=== PATIENT | male | born 1995 | race Caucasian/White ===

== ENCOUNTER 2017-06-27 09:09 | Day surgery (SDC) | payer OTHER ==
[~2017-06-27] VITALS: Ht 177.8 cm; Wt 74.3 kg
[2017-06-27 09:30] VITALS: BP 13/77; PULSE 75; RESP 17; TEMP 98.1; O2SAT 9
[2017-06-27] MEDS ORDERED: METO25TA6 PO (09:58)
[2017-06-27 10:18] LABS: AUTOMATED NEUTROPHIL # 2.8 TH/MM3 (1.8-7.7); BASOPHIL # 0.1 TH/MM3 (0-0.2); BASOPHIL % 1.2 % (0.0-2.0); EOSINOPHIL # 0.2 TH/MM3 (0-0.4); EOSINOPHIL % 3.9 % (0.0-4.0); HEMATOCRIT 45.7 % (39.0-51.0); HEMO FLAGS DIFF FINAL; LYMPH % 28.2 % (9.0-44.0); LYMPHOCYTE # 1.5 TH/MM3 (1.0-4.8); MEAN CELL VOLUME 81.9 FL (80.0-100.0); MONO % 13.2 % (0.0-8.0); NEUT % 53.5 % (16.0-70.0); PLATELET COUNT 285 TH/MM3 (150-450); RED BLOOD COUNT 5.59 MIL/MM3 (4.50-5.90); WHITE BLOOD COUNT 5.2 TH/MM3 (4.0-11.0)
[2017-06-27 10:25] LABS: APTT (PATIENT) 28.5 SEC (24.3-30.1); PROTHROMBIN TIME - PATIENT 10.7 SEC (9.8-11.6)
[2017-06-27 10:52] LABS: BICARBONATE 24.9 MEQ/L (21.0-32.0); POTASSIUM 3.9 MEQ/L (3.5-5.1)
[2017-06-27] MEDS ORDERED: LORazepam 1 MG TAB SL SCH (11:00)
[2017-06-27] MEDS ORDERED: POVIDONE IODINE 5% (ANTISEPSIS KIT) 4 APPLICATIONS EACH NARE PRN (11:00)
[2017-06-27] MEDS ORDERED: LACTATED RINGER'S 1000 ML IV PRN (11:00)
[2017-06-27] MEDS ORDERED: SODIUM CHLORID 0.9% 500 ML INJ 500 ML IV SCH (11:00)
[2017-06-27] MEDS ORDERED: CHLORHEXIDINE GLUCONATE 2 % 1 PACK (2 CLOTHS) TOPICAL PRN (11:00)
[2017-06-27] MEDS ORDERED: INSULIN HUMAN REGULAR 1,000 UNITS/10 ML VIAL SQ PRN (11:00)
[2017-06-27] MEDS ORDERED: SODIUM CHLORID 0.9% 500 ML IV PRN (11:00)
[2017-06-27] MEDS ORDERED: METOPROLOL TARTRATE 25 MG TAB PO PRN (11:00)
[2017-06-27] MEDS ORDERED: HEPARIN-NS/PF INJ 1,000 ML ONE (12:17)
[2017-06-27] MEDS ORDERED: ISOPROTERENOL HCL 1 MG/5 ML AMP ONE (13:22)
[2017-06-27] MEDS ORDERED: HEPARIN SODIUM - IV 10,000 UNITS/10 ML VIAL ONE (13:22)
[2017-06-27] MEDS ORDERED: HEPARIN-D5W 25,000 U/250 ML 0 ML ONE (13:22)
[2017-06-27] MEDS ORDERED: MIDAZOLAM HCL 2 MG/2 ML VIAL ONE (13:33)
[2017-06-27] MEDS ORDERED: HEPARIN-NS/PF INJ 2,000 ML ONE (14:53)
[2017-06-27] MEDS ORDERED: PROTAMINE SULFATE 50 MG/5 ML VIAL ONE (15:23)
[2017-06-27] MEDS ORDERED: DO NOT ADM ANY ANTICOAGULANT DRUGS PRN (15:30)
--- NOTE | 2017-06-27 15:37 | CATHPROC ---
Hyper9 HIS Report Study Information Study Number Admission Scheduled Start Study Start [id number] Jun 27 2017 9:09AM 06/27/2017 Jun 27 2017 11:50AM [place] Service Electrophysiology Study Admit Source Facility Department Other [facility] - [facility] Physician and Clinical Staff Initial Jovani Urban Structural Steel Engineer Tata Galindo,SOCIAL HUMAN SERVICES ASSISTANTS TECH2 Additional Trent Garcia Other Anesthesia, SPIRAL WEAVER Recorder Alycia Lock,RN Recorder Selam Tee,BSRN Scrub Lynn Calix,RT(R) TECH2 Procedures Performed Procedure Location (Site) Vessel Name Ablation Procedure ICE CATHETER INSERT RA Atruim RF Ablation LV Ventricle Wire insertion Fem Vein (right) Femoral Vein Equipment Time Ocean Export Account Manager Description Size Mfg Part Number Used/Scraped 14:45 [employer] CARTRIDGE, CO2 COMMANDER [id number] *[id number] Used BIOSENSE SWANSON CATHETER, THERMOCOOL NON- [id number] 12:14 Used INC. LINETTE TC D-F *[id number] BIOSENSE SWANSON 12:15 SET, TUBING COOLFLOW * [id number] Used INC. 538-450S *[id number] 13:51 CORDIS/PACER SHEATH, FR10 KODI 11CM FR 10 [id number] Used [id number] 12:13 [employer] INDUSTRIES PACK, CCL CUSTOM * Used *[id number] 12:13 [employer] PACER KAY, LIMB * 2530 *[id number] Used 14:44 NYCOMED OMNIPAQUE, 300 MG, 150ML 150ML [id number] Used [id number] 12:13 GARCIA MEDICAL BLANKET,WARM AIR CCL * Used *[id number] 12:14 [employer]. ARSENIO MEDICAL CATHETER, JSN, QUAD FR 5 Used *[id number] 12:14 [employer] ARS[employer] MEDICAL CATHETER, JSN, QUAD FR 5 Used *[id number] 12:14 [employer] ARSEN[employer] MEDICAL CATHETER, JSN, QUAD FR 5 Used *[id number] 12:13 ST. ARSENIO MEDICAL ELECTRODE KIT, LINETTE X SURFACE * [id number] Used SHEATH, EPS, FR10 FAST CATH 12:14 [employer]. ARSENIO MEDICAL FR 10 TRIO [id number] Used TRIO 12:14 [employer] ARSEN[employer] MEDICAL SHEATH, EPS, FR4 FAST CATH FR 4 [id number] Used 12:14 [employer] MEDICAL SHEATH, EPS, FR6 FAST CATH FR 6 [id number] Used 12:14 [employer] A[employer] MEDICAL SHEATH, EPS, FR6 FAST CATH FR 6 [id number] Used 12:14 [employer] A[employer] MEDICAL SHEATH, EPS, FR7 FAST CATH FR 7 [id number] Used 12:14 [employer] A[employer] MEDICAL SHEATH, EPS, FR8 FAST CATH FR 8 [id number] Used 14:04 [facility] A[employer] MEDICAL SHEATH, EPS, FR8 FAST CATH FR 8 [id number] Used CATHETER, ACUNAV FR10 ICE [id number] 13:58 SHAYE FR 10 Used (SHAYE) *[id number] [facility] PAD, ELECTROSURGICAL 12:13 * [id number] *[id number] Used SURGICAL GROUNDING (BLUE) History: Current Medications Medication Dosage/Unit Route Frequency Last Date/Time Taken LOPRESSOR History: Allergies Allergy Reaction No Known Allergies History: Risk Factors Family History of Hypertension Dyslipidemia Previous NV Previous Heart Failure Premature CAD No No No No No Prior Valve Prior PCI Prior CABG Surgery No No No Cerebrovascular Peripheral Artery Chronic Lung On Dialysis Diabetes Disease Disease Disease No No No No No History: Symptoms/Diagnosis Selection Items Palpitations SOB Labs Hgb (g/dl) Hct (%) RBC (MIL/MM3) WBC (l/cumm) Platelets (thousands) 11.60-17.00 35.00-51.00 4.00-5.90 4.00-11.00 150.00-450.00 15.0 45 5.5 5.2 285 Glucose (mg/dl) BUN (mg/dl) Creatinine (mg/dl) BUN:Creatinine (1:x) 74.00-106.00 7.00-18.00 0.50-1.30 10.00-20.00 95 14 0.8 17.5 Na (meq/l) K (meq/l) Cl (meq/l) CO2 (mmol/L) Ca (mg/dl) 136.00-145.00 3.50-5.10 98.00-107.00 21.00-32.00 8.50-10.10 136 3.9 105 24.9 9.5 INR (PTT:PT) 0.90-1.10 1 Medication Medication Total Dose (Bolus/Oral) Medication Total Dosage/Unit 1% XYLOCAINE 40 mL HEPARIN 8000 units PROTAMINE 10 mg Medications (Bolus/Oral) Medication Time Given Dosage/Unit Administered By Reason 1% XYLOCAINE 06/27/2017 1:43:46 PM 20 mL Jovani Garcia For pain 20 mL 1% XYLOCAINE given in lab by Jovani Garcia in Left Groin via Subcutaneous. Ordered by Arnoldo Garcia. Reason: For pain. 1% XYLOCAINE 06/27/2017 1:51:45 PM 20 mL Jovani Garcia As per physicians ve rbal order 20 mL 1% XYLOCAINE given in lab by Jovani Garcia in Right Groin via Subcutaneous. Ordered by Yue Garcia. Reason: As per physicians verbal order. HEPARIN 06/27/2017 1:55:10 PM 4000 units Jovani Garcia As per physicians ve rbal order 4000 units HEPARIN given in lab by Jovani Garcia in Right Forearm via Peripheral IV. Ordered by Jovani Garcia. Reason: As per physicians verbal order. HEPARIN 06/27/2017 2:10:24 PM 2000 units Jovani Garcia As per physicians ve rbal order 2000 units HEPARIN given in lab by Jovani Garcia in Right Forearm via Peripheral IV. Ordered by Jovani Garcia. Reason: As per physicians verbal order. HEPARIN 06/27/2017 2:40:39 PM 2000 units Jovani Garcia As per physicians ve rbal order 2000 units HEPARIN given in lab by Jovani Garcia in Right Forearm via Peripheral IV. Ordered by Jovani Garcia. Reason: As per physicians verbal order. PROTAMINE 06/27/2017 3:22:22 PM 10 mg Anesthesia, SPIRAL WEAVER As per physicians miguel bal order 10 mg PROTAMINE given in lab by Anesthesia, SPIRAL WEAVER via Peripheral IV. Ordered by Jovani Garcia. Reason: As per physicians verbal order. Medication (Drip) Medication Time Given Dosage/Unit Concentration/Unit Diluent (ml) Solution IV Solutions 06/27/2017 12:48:00 PM 0 mL (IV) NaCl .9 IV Solutions given in lab by Selam Tee BSRN in Left Forearm via Peripheral IV. Pump/Drip Flow = 50 ml/hr using NaCl .9. Ordered by Jovani Garcia. Reason: As per physicians verbal order. IV Solutions 06/27/2017 12:48:10 PM 0 mL (IV) NaCl .9 IV Solutions given in lab by Selam Tee BSRN in Right Forearm via Peripheral IV. Pump/Drip Ricky w = 50 ml/hr using NaCl .9. Ordered by Jovani Garcia. Reason: As per physicians verbal order. Initial Case Assessment Cardiovascular HR NIBP 73 127/72 Edema Present Skin color Skin None Normal Warm Dry Circulatory - Lower Extremities Color Lower Right Color Lower Left Normal Normal Neurological State Oriented to time-place- Alert Moves all extremities person Respiration - General Respiration Rate SpO2 (%) (B/min) 20 100 Final Case Assessment Cardiovascular HR Rhythm NIBP Chest Pain 84 sr 115/58 0 Edema Present Skin color Skin None Normal Warm Dry Circulatory - Right Pulses Dorsalis Pedis 1 Scale (0,1,2,3,4,d) Circulatory - Left Pulses Dorsalis Pedis 1 Scale (0,1,2,3,4,d) Circulatory - Lower Extremities Color Lower Right Color Lower Left Normal Normal Neurological State Oriented to time-place- Lethargic Moves all extremities person Respiration - General Respiration Rate SpO2 (%) O2 (lpm) (B/min) 18 100 4 Chronological Log Time Study Chronological Log 12:41:05 Patient arrived via Bed. 12:41:08 Patient Name, D.O.B, / Armband Verified By R.N. 12:41:10 Consent signed by the physician and the patient and verified by the [facility] staff. 12:41:12 Pre-op and post- op instructions given; patient acknowledges understanding of instructions. 12:41:14 Verbal Stimulation=2 Physical Stimulation=2 Airway=2 Respiration=2 TOTAL=8. (0=absent, 1=li mited, 2=present) 12:47:00 Patient has been NPO for More than 6Hrs. 12:47:01 Skin Breakdown- 12:47:02 Patient Warmer Placed on the Table. 12:47:03 Disposable Defibrillator Pads Placed On Patient. 12:47:04 Winnie Prominences Protected 12:47:06 A # 20 IV was noted in the Forearm (left). Grade = ~GRADE~ 12:47:07 A # 20 IV was noted in the Forearm (right). Grade = ~GRADE~ Assessment: Initial Case, HR=73 BPM, NJWN=082/72 mmhg, Edema=None, Color=Normal, Skin = Warm, D ry Lower Right Extremities: Color=Normal 12:47:33 Lower Left Extremities: Color=Normal Neurological: State=Alert, Ox3, FOX Respiration: Resp=20 B/min, RsS6=266 % IV Solutions given in lab by Selam Tee BSRN in Left Forearm via Peripheral IV. Pump/Dri p Flow = 50 ml/hr using 12:48:00 NaCl .9. Ordered by Jovani Garcia. Reason: As per physicians verbal order. IV Solutions given in lab by Selam Tee BSRN in Right Forearm via Peripheral IV. Pump/Dr ip Flow = 50 ml/hr 12:48:10 using NaCl .9. Ordered by Jovani Garcia. Reason: As per physicians verbal order. 12:54:22 Anesthesia at bedside. Assumes care of patient. Eamon URIAS 12:56:25 Table restraints applied according to hospital policy 13:29:59 MD paged 13:35:29 MD arrived. 13:36:07 Reference ECG taken Time Out #2 - Consents verified, patient in correct position, all results are labled and displa yed, safety precautions 13:42:10 taken, antibiotics administered. Time out concurred by MD, individual staff and SPIRAL WEAVER in procedu re 13:42:15 Case Start Time Out. Correct patient, procedure, procedure equipment, site and side verified with physicia n present. Time 13:42:56 concurred by MD, individual staff and SPIRAL WEAVER. 20 mL 1% XYLOCAINE given in lab by Jovani Garcia in Left Groin via Subcutaneous. Ordered by Jovani Corcoran. 13:43:46 Reason: For pain. 13:44:05 Vascular access was obtained in the Fem Vein (left). 13:44:09 Vascular access was obtained in the Fem Vein (left). 13:44:10 Vascular access was obtained in the Fem Vein (left). 13:44:15 Vascular access was obtained in the Fem Art (left). 13:44:38 A SHEATH, EPS, FR6 FAST CATH FR 6 was advanced into the Fem Vein (left) using the Percutane ous technique. A SHEATH, EPS, FR10 FAST CATH TRIO FR 10 TRIO was advanced into the Fem Vein (left) using the P ercutaneous 13:44:50 technique. 13:45:06 A SHEATH, EPS, FR7 FAST CATH FR 7 was advanced into the Fem Vein (left) using the Percutane ous technique. 13:46:29 A SHEATH, EPS, FR4 FAST CATH FR 4 was advanced into the Fem Art (left) using the Percutaneo us technique. 20 mL 1% XYLOCAINE given in lab by Jovani Garcia in Right Groin via Subcutaneous. Ordered by Jovain Brody. 13:51:45 Reason: As per physicians verbal order. 13:51:59 Vascular access was obtained in the Fem Vein (right). 13:52:03 Vascular access was obtained in the Fem Art (right). 13:52:50 A SHEATH, EPS, FR8 FAST CATH FR 8 was advanced into the Fem Art (right) using the Percutane ous technique. 13:53:32 A SHEATH, EPS, FR6 FAST CATH FR 6 was advanced into the Fem Vein (right) using the Percutan eous technique. 4000 units HEPARIN given in lab by Jovani Garcia in Right Forearm via Peripheral IV. Ordered by Jovani Garcia. 13:55:10 Reason: As per physicians verbal order. A CATHETER, JSN, QUAD FR 5 was advanced vis Fem Vein (left) and placed in the CS. Placement was visually 13:55:55 confirmed under fluoroscopy. A CATHETER, JSN, QUAD FR 5 was advanced vis Fem Vein (left) and placed in the HIS. Placement wa s visually 13:56:19 confirmed under fluoroscopy. A CATHETER, JSN, QUAD FR 5 was advanced vis Fem Vein (right) and placed in the RVA. Placement w as visually 13:56:34 confirmed under fluoroscopy. 13:57:29 CATHETER, ACUNAV FR10 ICE (SHAYE) FR 10 Was Postioned. A CATHETER, THERMOCOOL NON-LINETTE TC D-F was advanced vis Fem Art (right) and placed in the RVA. P lacement was 13:59:38 visually confirmed under fluoroscopy. 14:02:36 Vascular access was obtained in the Fem Vein (right). 14:03:52 A SHEATH, EPS, FR8 FAST CATH FR 8 was advanced into the Fem Vein (right) using the Percutan eous technique. 14:05:00 RF Ablation of the LV with a CATHETER, THERMOCOOL NON-LINETTE TC D-F. 14:06:35 Activated Clotting Time Drawn 2000 units HEPARIN given in lab by Jovani Garcia in Right Forearm via Peripheral IV. Ordered by Jovani Garcia. 14:10:24 Reason: As per physicians verbal order. 14:15:55 Activated Clotting Time Drawn 14:26:00 ACT (Normal Range 90-180) = 243 14:37:21 A PIGTAIL STR INFINITI CATHETER FR 4 was advanced over a wire. contrast was used for inject ions to visualize AV. 2000 units HEPARIN given in lab by Jovani Garcia in Right Forearm via Peripheral IV. Ordered by Jovani Garcia. 14:40:39 Reason: As per physicians verbal order. 14:41:57 Pressure channel 2 zeroed. 14:49:07 Activated Clotting Time Drawn 14:54:55 ACT (Normal Range 90-180) = 258 15:09:09 Ablation continues. 15:16:53 Activated Clotting Time Drawn 15:18:42 Ablation complete. 15:20:00 ACT (Normal Range 90-180) = 211 10 mg PROTAMINE given in lab by Anesthesia, SPIRAL WEAVER via Peripheral IV. Ordered by Jovani Garcia. R dariana: As per 15:22:22 physicians verbal order. 15:22:35 A wire was inserted via Fem Vein (right). 0.035 wire 15:23:05 Pigtail Catheter was removed 15:23:14 Wire removed 15:24:19 EPS Catheters removed without difficulty. 15:26:38 Ablation procedure performed: VT. 15:26:53 EP Procedure was performed. 15:28:27 DOCU called. Spoke to Leslie. 15:28:40 Bedside Report will be given. 15:30:00 Case End 15:31:12 Activated Clotting Time Drawn 15:31:15 Sheath(s) left in place, secured, 0.9ns kvo and pressure bags connected and will be removed in Holding Area. 15:32:14 Defibrillator and ground pads removed. Skin intact. 15:32:56 No case complications noted. 15:32:57 Sterile dressing applied to sites 15:32:58 Cine recording checked. Assessment: Final Case, HR=84 BPM, Rhythm=sr, QRKL=051/58 mmhg, Chest Pain=0, Edema=None, [place] r=Normal, Skin = Warm, Dry Right Pulses: Carter Ped=1 Left Pulses: Carter Ped=1 15:33:08 Lower Right Extremities: Color=Normal Lower Left Extremities: Color=Normal Neurological: State=Lethargic, Ox3, FOX Respiration: Resp=18 B/min, VkG2=637 %, O2=4 lpm 15:33:59 ACT (Normal Range 90-180) = 178 15:40:00 Patient moved to stretcher End Study - Contrast Media Used In Study Contrast Total Opened (mL) Total Used (mL) Total Wasted (mL) Omnipaque 50 20 30 End Study - Maximum Contrast Load Max Contrast Load (mL) 464.5 End Study - Radiation Exposure Fluoro Time (minutes) 13.6 End Study - Patient Disposition Complications Transferred To Interventional Outcome No Telemetry Bed successful
[2017-06-27] MEDS ORDERED: SODIUM CHLOR 0.9% 250 ML INJ 250 ML IV PRN (16:15)
[2017-06-27] MEDS ORDERED: ATROPINE SULFATE 1 MG/ML VIAL IV PRN (16:15)
[2017-06-27] MEDS ORDERED: METOCLOPRAMIDE HCL 10 MG/2 ML VIAL IV PRN (16:15)
[2017-06-27] MEDS ORDERED: BACITRACIN OINT 0.9 GM PKT TOP ONE (16:15)
[2017-06-27] MEDS ORDERED: LIDOCAINE HCL 1% 50 ML VIAL INFIL PRN (16:15)
[2017-06-27] MEDS ORDERED: ONDANSETRON HCL 4 MG/2 ML VIAL IV PRN (16:15)
[2017-06-27] MEDS ORDERED: LORazepam 2 MG/ML VIAL IV PRN (16:15)
[2017-06-27 18:30] VITALS: BP 110/70; PULSE 84; PULSE 86; RESP 17; TEMP 98.2; O2SAT 99
[2017-06-27 20:00] VITALS: BP 121/64; PULSE 83; RESP 18; TEMP 98.3; O2SAT 100
--- NOTE | 2017-06-27 20:23 | MA ---
cc: JACQUELINE ARMSTRONG M.D. DATE 06/27/17 PROCEDURE PERFORMED Electrophysiology study, CS cannulation, 3-D mapping, intracardiac echo, left heart catheterization, right ventricle outflow tract mapping, left ventricle outflow tract mapping, radiofrequency ablation of ventricular tachycardia that was a very complex and difficult case. HISTORY Mr. Andujar is a 22-year-old gentleman with history of palpitation, PVC, very symptomatic, referred for electrophysiology study and ablation. The risks, the nature and the benefit of the procedure are clearly stated to him. The risks include pneumothorax, cardiac perforation, stroke, need for open heart surgery and even . The patient understood and agreed to proceed. PROCEDURE IN DETAIL After written informed consent was obtained, the patient was brought to the EP lab where he was prepped and draped in the usual sterile fashion. Conscious sedation was initiated and maintained throughout the procedure by anesthesiologist. Once sedation verified, the right and left inguinal area was anesthetized with 2% Xylocaine. Using modified Seldinger technique, the left femoral vein was cannulated on three occasions. Three guidewires were advanced over the wire. A 6, 7 and a 10-Sol[place] Islander Hemaquet were advanced, then the left femoral artery was cannulated on one occasion, one guidewire was advanced, over the wire a 4-[place] Islander Hemaquet was advanced. Then the right femoral vein was cannulated on two occasions. Two guidewires were advanced over the wire, 6 and an 8-[place] Islander Hemaquet were advanced. Then the right femoral artery was cannulated on one occasion, one guidewire was advanced over the wire and an 8-[place] Islander Hemaquet was advanced. Then under fluoroscopic guidance through the 6 and 7 [place]er Hemaquet three 5-Sol[place] Islander Don curved quadripolar electrophysiology catheter advanced into position on the His, coronary sinus and right ventricular septal. Basic interval was measured all within normal limits. Then through the 10-Sol[place] Islander Hemaquet, a Cordis Ruiz AcuNav intracardiac echo catheter was advanced and placed at the right atrium. Multiple view was obtained. There is no pericardial effusion. Pulmonary vein was seen, atrial septum was visualized. Then the catheter was placed at the right ventricular septal area. There was clear visualization of the aortic valve as well as the left ventricle. At that point through the 8 Solomon Islander venous Hemaquet, a Cordis Ruiz bidirectional DF mapping and radiofrequency ablation catheter was advanced. Using EnSite endocardial solution mapping system a two-dimensional configuration of the right ventricle ____ obtained. PVC was mapped. Early activation come from apparently the right ventricle. After mapping. The timing was so late. The patient already receive 5000 units of heparin. The goal is to keep an ACT around 250 during the ablation. Through the arterial Hemaquet, bidirectional DF catheter was advanced. ____ approach of the aortic valve was performed. The aortic valve was mapped. Early activation lower septal just below the valve obtained. Multiple ablation energy was delivered. At that point I decided to call Dr. Lee to place the pigtail catheter at the aortic valve so the coronary course can be better visualized. Subsequently further mapping was performed, early activation was 30 seconds before the onset of the service QRS. Radiofrequency energy was delivered. During ablation the patient went into sinus rhythm. The patient back again in PVCs. Then further burn was delivered. I did use 40 preciado of power for 35 seconds. At that point there was no more PVCs. The patient was observed. For about 20 minutes not even a PVCs seen. At the beginning the patient was in PVCs with ___ beats. The patient was observed. Intracardiac echo showed no pericardial effusion. Valve well visualized. At that point procedure was complete. All catheters removed. The patient going to be transferred to recovery room. That was a very complex and difficult case. No incident report. The patient tolerated the procedure. 1. Electrocardiogram: At baseline the patient was in sinus PVC, postprocedure the patient in sinus rhythm. 2. Basic interval: Basic interval was 840 milliseconds. AH was around 80 and HV was around 40, 42 milliseconds. 3. Tachyarrhythmia: Ventricular tachycardia was mapped and ablated. Ablation was successful. CONCLUSION Successful electrophysiology study, mapping radiofrequency ablation of PVC and ventricular tachyarrhythmia. COMMENT/RECOMMENDATIONS The patient going to be observed. I am going to DC beta francisca. If patient is stable can be discharged home in the morning. Jacqueline Armstrong MD HS/EO /4:09 PM /7:37 PM
[2017-06-27 21:00] VITALS: PULSE 81
[2017-06-27 22:00] VITALS: PULSE 86
[2017-06-27 23:00] VITALS: PULSE 104
[2017-06-28] VITALS (10 sets, daily range): BP systolic 106–124; BP diastolic 60–73; PULSE 76–90; RESP 16–20; TEMP 98.3–98.9; O2SAT 98–99
[2017-06-28] MEDS ORDERED: ACETAMINOPHEN 325 MG TAB PO ONE (01:00)
[2017-06-28 06:23] LABS: APTT (PATIENT) 26.8 SEC (24.3-30.1)
--- NOTE | 2017-06-28 09:21 | PD.CARD.PN ---
Subjective Subjective Remarks no complaints Objective Medications Current Medications Medications (Trade) Dose Ordered Sig/Kalani Route Start Time Stop Time Status Last Admin Sodium Chloride 500 ml @ 30 mls/hr [id number] IV 06/27/17 11:00 06/27/17 11:00 (Ativan) 1 mg DESCRIPTIVE CATALOG LIBRARIAN SL 06/27/17 11:00 06/30/17 10:59 Lactated Ringer's 1,000 ml @ 30 mls/hr Q24H PRN IV 06/27/17 11:00 06/30/17 10:59 Sodium Chloride 500 ml @ 30 mls/hr [id number] PRN IV 06/27/17 11:00 06/30/17 10:59 (Lopressor) 25 mg DESCRIPTIVE CATALOG LIBRARIAN PRN PO 06/27/17 11:00 06/30/17 10:59 (Betadine 5% Antisepsis Kit) 1 applic DESCRIPTIVE CATALOG LIBRARIAN PRN EACH NARE 06/27/17 11:00 06/30/17 10:59 (Chlorhexidine 2% Cloth) 3 pack DESCRIPTIVE CATALOG LIBRARIAN PRN TOPICAL 06/27/17 11:00 06/30/17 10:59 (NovoLIN R INJ) See Protocol Table ... DESCRIPTIVE CATALOG LIBRARIAN PRN SQ 06/27/17 11:00 06/30/17 10:59 (Ativan Inj) 0.5 mg UNSCH PRN IV 06/27/17 16:15 06/28/17 16:14 (Atropine Inj) 0.5 mg UNSCH PRN IV 06/27/17 16:15 Sodium Chloride 250 ml @ 500 mls/hr ONCE PRN IV 06/27/17 16:15 06/28/17 16:14 (Reglan Inj) 10 mg Q4H PRN IV 06/27/17 16:15 (Zofran Inj) 4 mg Q4H PRN IV 06/27/17 16:15 06/27/17 16:55 (Xylocaine 1% Inj (50 ml)) 10 ml UNSCH PRN INFIL 06/27/17 16:15 06/28/17 16:14 Miscellaneous Information ALL NURSING DEPARTME... UNSCH PRN .XX 06/27/17 15:30 06/28/17 15:29 Vital Signs / I&O Vital Signs Date Time Temp Pulse Resp B/P (MAP) Pulse Ox O2 Delivery O2 Flow Rate FiO2 06/28/17 06:00 80 06/28/17 05:00 80 06/28/17 04:00 82 06/28/17 04:00 98.9 89 18 112/60 (77) 98 06/28/17 03:00 82 06/28/17 02:00 80 06/28/17 01:00 80 06/28/17 00:00 84 06/28/17 00:00 98.3 84 18 124/73 (90) 99 06/27/17 23:00 104 06/27/17 22:00 86 06/27/17 21:00 81 06/27/17 20:00 83 06/27/17 20:00 98.3 83 18 121/64 (83) 100 06/27/17 18:30 98.2 86 17 110/70 (83) 99 06/27/17 18:30 84 06/27/17 15:51 100 Room Air 06/27/17 09:30 98.1 75 17 13/77 (56) 9 I/O 06/27/17 06/27/17 06/27/17 06/28/17 06/28/17 06/28/17 07:00 15:00 23:00 07:00 15:00 23:00 Intake Total 120 ml 480 ml Output Total 675 ml Balance 120 ml -195 ml Intake Oral 120 ml 480 ml Output Urine Total 675 ml Physical Exam GENERAL: Well-nourished, well-developed patient. SKIN: Warm and dry. HEAD: Normocephalic. EYES: No scleral icterus. No injection or drainage. NECK: Supple, trachea midline. No JVD or lymphadenopathy. CARDIOVASCULAR: Regular rate and rhythm without murmurs, gallops, or rubs. RESPIRATORY: Breath sounds equal bilaterally. No accessory muscle use. GASTROINTESTINAL: Abdomen soft, non-tender, nondistended. EXTREMITIES: No cyanosis, or edema. NEUROLOGICAL: Awake, alert, and oriented x 3. Non-focal. Laboratory Laboratory Tests Test 06/27/17 09:50 06/28/17 04:25 White Blood Count 5.2 TH/MM3 Red Blood Count 5.59 MIL/MM3 Hemoglobin 15.1 GM/DL Hematocrit 45.7 % Mean Corpuscular Volume 81.9 FL Mean Corpuscular Hemoglobin 27.0 PG Mean Corpuscular Hemoglobin Concent 33.0 % Red Cell Distribution Width 14.0 % Platelet Count 285 TH/MM3 Mean Platelet Volume 7.0 FL Neutrophils (%) (Auto) 53.5 % Lymphocytes (%) (Auto) 28.2 % Monocytes (%) (Auto) 13.2 % Eosinophils (%) (Auto) 3.9 % Basophils (%) (Auto) 1.2 % Neutrophils # (Auto) 2.8 TH/MM3 Lymphocytes # (Auto) 1.5 TH/MM3 Monocytes # (Auto) 0.7 TH/MM3 Eosinophils # (Auto) 0.2 TH/MM3 Basophils # (Auto) 0.1 TH/MM3 CBC Comment DIFF FINAL Differential Comment Prothrombin Time 10.7 SEC 11.0 SEC Prothromb Time International Ratio 1.0 RATIO 1.0 RATIO Activated Partial Thromboplast Time 28.5 SEC 26.8 SEC Blood Urea Nitrogen 14 MG/DL Creatinine 0.82 MG/DL Random Glucose 95 MG/DL Calcium Level 9.5 MG/DL Sodium Level 136 MEQ/L Potassium Level 3.9 MEQ/L Chloride Level 105 MEQ/L Carbon Dioxide Level 24.9 MEQ/L Anion Gap 6 MEQ/L Estimat Glomerular Filtration Rate 119 ML/MIN Assessment and Plan Problem List: (1) PVC (premature ventricular contraction) ICD Codes: I49.3 - Ventricular premature depolarization Plan: s/p ablation No CV complaints Recommendations: 1. d/c home today Trent Riley MD Jun 28, 2017 09:21
--- NOTE | 2017-06-28 18:31 | EKG ---
Date Performed: 06/27/2017 Time Performed: 17:33:30 PTAGE: 22 years EKG: Sinus rhythm Inferior T wave changes may be normal for age Borderline ECG PREVIOUS TRACING : 06/27/2017 10.02 Compared to prior tracing no significant change DOCTOR: Patrick Hardin Interpretating Date/Time 06/28/2017 18:30:35
--- NOTE | 2017-06-28 18:51 | EKG ---
Date Performed: 06/27/2017 Time Performed: 10:02:54 PTAGE: 22 years EKG: Sinus arrhythmia Mild dffuse ST elevation NO PREVIOUS TRACING DOCTOR: Patrick Hardin Interpretating Date/Time 06/28/2017 18:50:32
== END 2017-06-28 12:56 | disposition home or self-care (01) ==
LOC: HDOC 09:09 → HDIC 09:11 → HCIN 18:00 → HDOC 06-28 12:56
PROVIDERS: ATTEND Internal Medicine Interventional Cardiology
DX: I47.2 Ventricular tachycardia (principal); I49.3 Ventricular premature depolarization; R00.2 Palpitations; R06.02 Shortness of breath
CPT/HCPCS: 80048; 85002; 85025; 85610; 85730; 86850; 86900; 86901; 93005; 93623; 93654; 93662; C1730; C1732; C1759; C2630; J1644; J2250; J2405; J2720; J3010; J7040; 93613